=== PATIENT | male | born 1990 | race Caucasian/White ===

== ENCOUNTER 2024-07-15 15:13 | Outpatient (CLI) | payer BC, SELFPAY ==
[2024-07-15 14:39] LABS: Basophils # 0.1 K/mm3 (0-0.2); Basophils % 1.3 % (0.1-2.0); Eosinophils # 0.2 K/mm3 (0.0-0.4); Eosinophils % 3.1 % (0.1-12.0); Hematocrit 47.7 % (42.0-52.0); Hemoglobin 15.1 g/dL (14.1-18.0); Lymphocytes # 2.3 K/mm3 (0.7-4.5); Lymphocytes % 33.9 % (10-50); Mean Corpuscular HGB Conc 31.7 g/dL (31.8-35.4); Mean Corpuscular Hemoglobin 25.6 pg (27.0-31.2); Mean Corpuscular Volume 80.8 fl (80-94); Mean Platelet Volume 10.7 fl (7.4-10.4); Monocytes # 0.5 K/mm3 (0.1-1.0); Monocytes % 7.8 % (1.7-9.3); Neutrophils # 3.6 K/mm3 (1.8-7.8); Neutrophils % 53.6 % (37.0-80.0); Platelet Count 315 K/mm3 (142-424); Red Cell Distribution Width 15.7 % (11.5-17.5); White Blood Count 6.8 K/mm3 (4.8-10.8)
[2024-07-15 15:04] LABS: Chloride 103 mmol/L (98-107)
[2024-07-15 15:05] LABS: Sodium 141 mmol/L (136-145)
[2024-07-15 15:08] LABS: Alanine Aminotransferase 41 U/L (12-78); Alkaline Phosphatase 43 U/L (38-126); Aspartate Amino Transferase 33 U/L (17-59); Bilirubin,Total 0.7 mg/dl (0.2-1.3); Blood Urea Nitrogen 19 mg/dl (9-20); Calcium 9.4 mg/dl (8.4-10.2); Carbon Dioxide 26 mmol/L (22.0-30.0); Chol/HDL Ratio 7.4 (1-3.5); Cholesterol 250 mg/dl (140-200); Estimated Glomerular Filt Rate 85 ml/min (>60); GFR (African American) 103 ML/MIN (>60); Glucose 87 mg/dl (74-100); HDL Cholesterol 34 mg/dl (40-60); Total Protein,Serum 7.1 g/dl (6.3-8.2); Triglycerides 107 mg/dl (30-150); VLDL Cholesterol 21 mg/dL (0-40)
[2024-07-15 15:20] LABS: Direct LDL Cholesterol 188.86 mg/dL (100-129)
[2024-07-15 15:39] LABS: Thyroid Stimulating Hormone 1.45 uIU/mL (0.465-4.68)
[2024-07-15 16:23] LABS: Albumin Level 4.6 g/dl (3.5-5.0); Albumin/Globulin Ratio 1.8 (1.1-1.8); Globulin 2.5 g/dL (1.3-3.2)
[2024-07-16 03:55] LABS: Estradiol 31.6 pg/mL (7.6-42.6)
[2024-07-24 18:32] LABS: Testosterone, Total, LC/MS 407 ng/dL (.)
== END 2024-07-15 23:59 | disposition home or self-care (01) ==
LOC: LAB.DROPOF 15:13
PROVIDERS: PCP Internal Medicine; Visit Provider Internal Medicine
DX: E29.1 Testicular hypofunction (principal); Z13.220 Encounter for screening for lipoid disorders; Z79.890 Hormone replacement therapy; Z13.29 Encounter for screening for other suspected endocrine disorder
CPT/HCPCS: 80053; 80061; 82670; 84403; 84443; 85025

== ENCOUNTER 2025-04-09 10:47 | Outpatient (CLI) | payer BC, SELFPAY ==
--- NOTE | 2025-04-09 10:49 | XR_ITS ---
FINAL REPORT CLINICAL HISTORY: Fell off of ladder last Simon. Pain in low back and upper portion of pelvis. COMPARISON: None FINDINGS: SINGLE VIEW PELVIS: A single view of the pelvis was obtained. There is no acute fracture or dislocation. Vizualized joint spaces are normally aligned. Soft tissues are unremarkable. IMPRESSION: No acute bony abnormality. Reviewed, Interpreted and Dictated by Ranjan Stallings MD Transcribed by Molly Carolina Authenticated and [facility]
--- NOTE | 2025-04-09 10:49 | XR_ITS ---
FINAL REPORT CLINICAL HISTORY: Fell off of ladder last Sunday. Pain in low back and upper portion of pelvis. COMPARISON: None FINDINGS: 3 views of the lumbar spine were obtained. There is no evidence of fracture. There is no malalignment. The vertebrae are normal in height. There is moderate anterior osteophyte formation at T12-L1 and L1-2. No paraspinous soft tissue abnormalities identified. IMPRESSION: No acute bony abnormality. Reviewed, Interpreted and Dictated by Ranjan Stallings MD Transcribed by Molly Carolina Authenticated and . [facility]
--- OUTSIDE RECORDS SUMMARY | 2025-04-09 10:53 | XMS_ITS | Clinical Summary ---
Author Organization [facility] Address [address] [place] [address] Care Team Providers Care Agricultural Chemist Name Role Phone Jimbo Hirsch MD Primary Care Provider [phone] Allergies No known active allergies Medications NON FORMULARY / PATIENT SUPPLIED MEDICATION TST patient takes testosterone cypionate injectable twice a week 0.35 mL of 200mg/mL Active NON FORMULARY / PATIENT SUPPLIED MEDICATION Estrogen dinh only taken on this is a pill Active lisinopril (PRINIVIL,ZESTRI L) 20 MG tabletIndication s:Primary hypertension Take 1 tablet by mouth Daily. 90 tablet 3 4 Active omeprazole (priLOSEC) 40 MG capsuleIndicatio ns:Gastroesophag eal reflux disease without esophagitis Take 1 capsule by mouth Daily. 90 capsule 3 4 Active Active Problems Problem Noted Date Diagnosed Date Impingement of right shoulder 06/19/2023 Assessment & Plan (06/19/2023 12:47 PM EST): Continue ibuprofen as needed Exercises given and he has background in personal training and decline formal PT. Refer to ortho to evaluate for subacromial injection may help. Plantar fasciitis, right 06/19/2023 Assessment & Plan (06/19/2023 12:49 PM EST): Recommend insoles such as powerstep Stretches Night brace Primary hypertension 09/05/2022 Assessment & Plan (06/19/2023 12:48 PM EST): A little above goal. But didn't take lisinopril this am. Monitor at home f/u in 3 months call sooner if not at goal. Cont lisinopril 20 mg Assessment & Plan (09/05/2022 8:36 AM EST): - Prescribed lisinopril he has been noncompliant so will not increase today we will follow-up in 3 months Gastroesophageal reflux disease without esophagi tis 09/05/2022 Assessment & Plan (06/19/2023 9:05 AM EST): Cont omeprazole. Assessment & Plan (09/05/2022 8:36 AM EST): Risk and benefits of omeprazole discussed and will refill Low testosterone in male 09/05/2022 Assessment & Plan (09/05/2022 8:34 AM EST): Patient takes testosterone injection and likely selective estrogen receptor modulator per outside physician Family History Medical History Relation Name Comments Asthma Father Bill Diabetes Father Bill Hyperlipidemia Father Bill Alcohol abuse Mother Valery Depression Mother Valery Relation Name Status Comments Father Bill Mother Valery Social History Tobacco Use Types Packs/Day Years Used Date Smoking Tobacco: Never Smokeless Tobacco: Current Snuff Tobacco Cessation:Ready to Q uit: Not Asked; Counseling Given: Not Answered Alcohol Use Standard Drinks/Week Comments Yes 2 (1 standard drink = 0.6 oz pur e alcohol) occasional- 1 shot weekly PHQ-2 Answer Date Recorded Retired PHQ-9: Brief Depression Severity Measure Score 0 09/05/2022 Abuse Screen Answer Date Recorded Unsafe at Home or Work/School Not on file Feels Threatened by Someone? Not on file 03/2023 Does Anyone Keep You from Co ntacting Others or Doint Things Outside the Home? Not on file 04/16/2023 Physical Sign of Abuse Present Not on file 1 Housing Stability Answer Date Recorded Current Living Arrangements Not on file 03/2023 Potentially Unsafe Housing Conditions Not on mimi e 04/16/2023 Family and Community Support Answer Pete e Recorded Help with Day-to-Day Activities Not on file 04/16/2023 Lonely or Isolated Not on file 04/16/2023 Employment Answer Date Recorded Do you want help finding or keeping work or a randall b? Not on file 04/16/2023 Disabilities Answer Date Recorded Concentrating, Remembering, or Making Decisions Difficulty Not on file 04/16/2023 Doing Errands Independently Difficulty Not on fi le 04/16/2023 Education Answer Date Recorded Help with school or training? Not on file Preferred Language Not on file 04/16/2023 PHQ-2 Answer Date Recorded Retired PHQ-9: Brief Depression Severity Measure Score 0 09/05/2022 Sex and Gender Information Value Date Recorded Sex Assigned at Not on file Legal Sex Male 12:39 PM EDT Gender Identity Not on file Sexual Orientation Not on file Last Filed Vital Signs Vital Sign Reading Time Taken Comments Blood Pressure 170/110 07/12/2023 9:26 AM EST Pulse 71 06/19/2023 8:54 AM EST Temperature 36.7 C (98 F) 06/19/2023 8:54 AM EST Respiratory Rate 21 06/19/2023 8:54 AM EST Oxygen Saturation 98% 06/19/2023 8:54 AM EST Inhaled Oxygen Concentration - - Weight 135 kg (297 lb 9.9 oz) 07/12/2023 9:26 AM EST Height 188 cm (6' 2.02 ) 07/12/2023 9:26 AM EST Body Mass Index 38.2 07/12/2023 9:26 AM EST Plan of Treatment Health Maintenance Due Date Last Done Comments TDAP/TD VACCINES (1 - Tdap) 2008 ANNUAL PHYSICAL 09/05/2022 HEPATITIS C SCREENING 09/05/2022 INFLUENZA VACCINE Discontinued 05/09/2017, 05/10/2016 Pneumococcal Vaccine 0-49 Aged Out No longer eligible based on patient's age to complete this topic Insurance [employer] Care Teams Agricultural Chemist Relationship Specialty Start Date End Date Jimbo Hirsch MD [address] [place] [address] PCP - General Family Medicine 09/05/22
== END 2025-04-09 23:59 | disposition home or self-care (01) ==
LOC: RAD 10:47
PROVIDERS: PCP Internal Medicine; Visit Provider Internal Medicine
DX: M54.50 Low back pain, unspecified (principal); W11.XXXA Fall on and from ladder, initial encounter
CPT/HCPCS: 72100; 72170

== ENCOUNTER 2025-07-05 10:44 | Emergency (ER) | payer BC, SELFPAY ==
[2025-07-05] VITALS (8 sets, daily range): BP systolic 111–133; BP diastolic 53–80; PULSE 75–86; RESP 18; TEMP 37.3; O2SAT 94–98; BMI 39.1
--- OUTSIDE RECORDS SUMMARY | 2025-07-05 10:54 | XMS_ITS | Clinical Summary ---
Author Organization [facility] Address [address] [place] [address] Care Team Providers Care Parking Meter Mechanic Name Role Phone Jimbo Hirsch MD Primary Care Provider [phone] Allergies No known active allergies Medications NON [...] patient's age to complete this topic Insurance [employer] EM[employer] Care Teams Parking Meter Mechanic Relationship Specialty Start Date End Date Jimbo Hirsch MD [address] [place] [address] PCP - General Family Medicine 09/05/22
--- OUTSIDE RECORDS SUMMARY | 2025-07-05 10:54 | XMS_ITS ---
Author Organization Unknown ENCOUNTERS Encounter Performer Location Date Diagnosis Diagnosis Status Emergency [facility] [address] [place] [address] [id number] Pre Admit [facility] [address] [place] [address] [id number] *Note: Encounters from your own facility or health system may be excluded. Allergies, Adverse Reactions, Alerts Allergen Type Severity Identification Date Medications Name Date Quantity Days Supplied GPI Number
--- NOTE | 2025-07-05 11:11 | CT_ITS ---
PROCEDURE INFORMATION: Exam: CT Thoracic Spine Without Contrast Exam date and time: 07/05/2025 11:46 AM Age: 35 years old Clinical indication: Injury or trauma; Fall; Other: Pain TECHNIQUE: Imaging protocol: Computed tomography of the thoracic spine without contrast. Radiation optimization: All CT scans at this facility use at least one of these dose optimization techniques: automated exposure control; mA and/or kV adjustment per patient size (includes targeted exams where dose is matched to clinical indication); or iterative reconstruction. COMPARISON: CT THORACIC SPINE WO CON 07/05/2025 11:46 AM FINDINGS: Bones/joints: There is a prominent kyphosis of the thoracolumbar junction with relative straightening of the thoracic spine.There is no evidence of an acute fracture. Soft tissues: The included paraspinal soft tissues appear normal. Lungs: The included lungs appear normal. Pleural spaces: There are no pleural effusions present. Other findings: A moderate hiatal hernia is present. IMPRESSION: 1. There is a prominent kyphosis of the thoracolumbar junction with relative straightening of the thoracic spine.There is no evidence of an acute fracture. 2. The included lungs appear normal. 3. There are no pleural effusions present.
--- NOTE | 2025-07-05 11:11 | CT_ITS ---
PROCEDURE INFORMATION: Exam: CT Cervical Spine Without Contrast Exam date and time: 07/05/2025 11:44 AM Age: 35 years old Clinical indication: Injury or trauma; Fall; Other: Pain; Additional info: Pain fall TECHNIQUE: Imaging protocol: Computed tomography of the cervical spine without contrast. Radiation optimization: All CT scans at this facility use at least one of these dose optimization techniques: automated exposure control; mA and/or kV adjustment per patient size (includes targeted exams where dose is matched to clinical indication); or iterative reconstruction. COMPARISON: CT CERVICAL SPINE WO CON 07/05/2025 11:44 AM FINDINGS: Bones: There is a flattening of the normal lordosis, related to positioning or spasm. There is no evidence of an acute fracture. Lungs: The visualized portions of the lung apices are normal. Thyroid: A 1 cm hypodense lesion is noted in the central left thyroid lobe on axial image 92. No follow up is recommended for this size lesion. Lymph nodes: There are numerous prominent but non-pathologic lymph nodes in the neck. There are no nodes of pathologic dimensions. Soft tissues: Unremarkable. IMPRESSION: 1. There is a flattening of the normal lordosis, related to positioning or spasm. 2. There is no evidence of an acute fracture. 3. A 1 cm hypodense lesion is noted in the central left thyroid lobe on axial image 92. No follow up is recommended for this size lesion. COMMENTS: Consistent with the [employer]'s Incidental Findings Committee white paper (J Am Freddy Radiol 2015): In patients aged 35 years and older with an incidental thyroid nodule equal to or greater than 1.[address], MRI or extrathyroidal US, further evaluation with dedicated thyroid US is recommended for patients with normal life expectancy and without comorbidities. For smaller nodules without suspicious features, no further evaluation or follow up is recommended.
--- NOTE | 2025-07-05 11:11 | CT_ITS ---
PROCEDURE INFORMATION: Exam: CT Lumbar Spine Without Contrast Exam date and time: 07/05/2025 11:49 AM Age: 35 years old Clinical indication: Injury or trauma; Fall; Other: Pain; Additional info: Back pain from fall TECHNIQUE: Imaging protocol: Computed tomography of the lumbar spine without contrast. Radiation optimization: All CT scans at this facility use at least one of these dose optimization techniques: automated exposure control; mA and/or kV adjustment per patient size (includes targeted exams where dose is matched to clinical indication); or iterative reconstruction. COMPARISON: CR XR LUMBAR SPINE 2-3V 04/09/2025 10:58 AM FINDINGS: Bones/joints: There is no evidence of an acute fracture. Soft tissues: The included paraspinal soft tissues appear normal. There is no nerve root compression. IMPRESSION: 1. There is no evidence of an acute fracture. 2. There is no nerve root compression.
--- NOTE | 2025-07-05 11:12 | XR_ITS ---
PROCEDURE INFORMATION: Exam: XR Chest Exam date and time: 07/05/2025 11:51 AM Age: 35 years old Clinical indication: Shortness of breath; Additional info: Short of breath TECHNIQUE: Imaging protocol: Radiologic exam of the chest. Views: 1 view. COMPARISON: CT THORACIC SPINE WO CON 07/05/2025 11:46 AM FINDINGS: Lungs: Unremarkable. No consolidation. Pleural spaces: Unremarkable. No pleural effusion. No pneumothorax. Heart/Mediastinum: Unremarkable. No cardiomegaly. Bones/joints: Unremarkable. IMPRESSION: No acute findings.
--- NOTE | 2025-07-05 11:14 | ED_ITS ---
Discharge Plan Disposition Patient Disposition: Home, Self-Care Condition: Good Prescriptions Prescriptions: New ondansetron HCl 4 mg tablet 4 mg PO DAILY PRN (Reason: nausea and vomiting) 5 Days Qty: 20 0RF No Action omeprazole 40 mg capsule,delayed release(DR/EC) See Rx Instructions .ROUTE .COMPLEX Qty: 90 3RF Dose Instruction: TAKE ONE CAPSULE BY MOUTH EVERY DAY Rx Instructions: TAKE ONE CAPSULE BY MOUTH EVERY DAY lisinopril 20 mg tablet 20 mg PO DAILY Qty: 90 3RF Referrals Follow up/Referrals: Javon Vidal DO [Primary Care Provider, Family Practice] - See instructions Activity Restrictions/Add. Instructions Additional Instructions/Restrictions: Please follow-up with Dr. Vidal for repeat of liver enzymes as they were elevated here in the ED. Drink lots of fluids and rest. If any other symptoms occur please return to the ED Clinical Impressions Clinical Impression: Dehydration Instructions Patient Instructions: Dehydration Print Language Print Language: Chinese Discharge ED Provider: Rosendo Shaw General Adult HPI <Ramila Arroyo (ED), STRATEGIC PLANNING CONSULTANT - Last Filed: 07/05/25 15:15> General Chief complaint: Nausea/Vomiting/Diarrhea Stated complaint: fever, muscles spams, skin sensitivity Time Seen by Provider: 07/05/25 10:59 History of Present Illness HPI narrative: 35-year-old male presents to the ED today after passing out on morning. He got sick on Sunday with flulike symptoms. He has been weak and unable to tolerate much fluid. He has tried to drink plenty of fluids but has been unable to. has been trying to encourage him to come to the ER for the past couple of days but he just did not want to. He has had a headache but is been taking ibuprofen and it has helped some. Related Data Previous Rx's ?Medication ?Instructions ?Recorded omeprazole 40 mg capsule,delayed See Rx Instructions . Route 02/18/25 release .COMPLEX #90 caps lisinopril 20 mg tablet 20 mg PO DAILY #90 tabs 05/09 03/02 ondansetron HCl 4 mg tablet 4 mg PO DAILY PRN nausea a nd 07/05/25 vomiting 5 days #20 tabs Allergies Allergy/AdvReac Type Severity Reaction Status Date / Time No Known Allergies Allergy Verified 07/05/25 10:23 PFSH <Ramila Arroyo (ED), STRATEGIC PLANNING CONSULTANT - Last Filed: 07/05/25 15:15> [facility] Disclaimer: The information contained in this section may have been updated after the patient was seen, as this information can be updated by other users. Medical History Heartburn Acid reflux Hypertension Low testosterone Social History Smoking Status: Never smoker smoking status stop date: Nicotine patches alcohol intake: current alcohol intake frequency: a few times a week substance use type: denies use current occupational status: employed Travel in the last 8 weeks?: None Have you lived/traveled outside [place] in past 30 days?: No Contact w/someone who lives/traveled outside US past 30 days?: No Exposure to someone with infectious disease in past 14 days?: No Do you have a fever (greater than 100.4 F or 38 C)?: No Have you tested positive for COVID-19?: No Exposed to someone with COVID-19 in past 14 days?: No Do you have a sore throat?: No Do you have a cough?: No Do you have any weakness?: No Do you have any diarrhea?: No Are you experiencing any unusual bleeding?: No Do you have any muscle aches/pain?: No Do you have any abdominal pain?: No Are you experiencing loss of taste or smell?: No Other Medical History Have you received the Pneumonia Vaccine: No <Ramila Arroyo (ED), STRATEGIC PLANNING CONSULTANT - Last Filed: 07/05/25 15:15> ROS Obtained: Yes Systems reviewed as appropriate & no additional complaints except as documented Constitutional Constitutional: Reports as per HPI Physical Exam <Ramila Vysunny (ED), STRATEGIC PLANNING CONSULTANT - Last Filed: 07/05/25 15:15> General General appearance: alert Head Head exam: normocephalic Eye Eye exam: Present PERRL and EOMI ENT ENT exam: Present normal oropharynx and mucous membranes moist Neck Neck exam: Present full ROM and trachea midline Respiratory Respiratory exam: Present normal lung sounds bilaterally Cardiovascular Cardiovascular exam: Present regular rate, normal rhythm, normal heart sounds, +S1 and +S2 Abdominal Exam Abdominal exam: Present soft and normal bowel sounds Extremities Exam Extremities exam: Present full ROM and normal capillary refill Neurological Exam Neurological exam: Present alert and oriented X3 Skin Skin exam: Present warm and dry Medical Decision Making <Ramila Arroyo (ED), STRATEGIC PLANNING CONSULTANT - Last Filed: 07/05/25 15:15> Medical Records Screening: Per USPSTF and CDC recommendations, given the prevalence of disease in our region, it is our hospital?s policy to screen for HIV and viral Hepatitis for all patients aged 18 and over and those with ongoing risk factors. Quoc Inquiry Pt receiving controlled substance: No Quoc was queried for this patient: No Vital Signs: 07/05/25 11:11 07/05/25 11:13 07/05/25 12:00 Temperature 99.2 F Temperature Source Oral Pulse Rate 80 76 Pulse Rate [Radial] 86 Respiratory Rate 18 Blood Pressure 126/72 133/80 Blood Pressure [Right Arm] 126/72 Blood Pressure Mean [Right Arm] 90 Blood Pressure Source [Right Arm] Automatic Cuff Blood Pressure Position [Right Arm] Sitting 02 Sat by Pulse Oximetry 98 97 98 Oxygen Delivery Method Room Air Room Air Room Air 07/05/25 12:30 07/05/25 14:00 07/05/25 14:30 Temperature Temperature Source Pulse Rate 77 77 76 Pulse Rate [Radial] Respiratory Rate Blood Pressure 125/68 125/72 111/53 L Blood Pressure [Right Arm] Blood Pressure Mean [Right Arm] Blood Pressure Source [Right Arm] Blood Pressure Position [Right Arm] 02 Sat by Pulse Oximetry 96 96 94 L Oxygen Delivery Method Room Air 07/05/25 15:00 07/05/25 15:21 Temperature 99.2 F Temperature Source Pulse Rate 75 84 Pulse Rate [Radial] Respiratory Rate 18 Blood Pressure 124/68 124/68 Blood Pressure [Right Arm] Blood Pressure Mean [Right Arm] Blood Pressure Source [Right Arm] Blood Pressure Position [Right Arm] 02 Sat by Pulse Oximetry 95 Oxygen Delivery Method Room Air Lab Data Lab Results 07/05/25 11:11: SARS-CoV-2 (PCR) Not detected, Influenza A Untype (PCR) Not detected, Influenza Type B (PCR) Not detected 07/05/25 11:38: WBC 3.4 L, RBC 5.05, Hgb 14.0 L, Hct 41.9 L, MCV 83.0, MCH 27.7, MCHC 33.4, RDW 13.9, Plt Count 122 L, MPV 10.1, Neut % (Auto) 71.9, Lymph % (Auto) 19.2, [place] % (Auto) 7.7, Eos % (Auto) 0.0 L, Baso % (Auto) 0.6, Neut # (Auto) 2.4, Lymph # (Auto) 0.7, [place] # (Auto) 0.3, Eos # (Auto) 0.0, Baso # (Auto) 0.0, Sodium 138, Potassium 3.6, Chloride 104, Carbon Dioxide 28, Anion Gap 9.6, BUN 16, Creatinine 1.10, Estimated Creat Clear 182, Estimated GFR 76, Est GFR ( Amer) 92, Glucose 116 H, Calcium 9.0, Magnesium 2.2, Total Bilirubin 0.5, AST 105 H, ALT 159 H, Alkaline Phosphatase 85, Troponin I < 0.01, Total Protein 6.4, Albumin 3.8, Globulin 2.6, Albumin/Globulin Ratio 1.5, Lipase 125, HCV Ab KERI w/Rflx PCR Qn Negative, HIV Ag/Ab Combo Qual Negative 07/05/25 12:58: Urine Color Yellow, Urine Appearance Clear, Urine pH 6.0, Ur Specific [place] 1.025, Urine Protein Negative, Urine Glucose (UA) Negative, Urine Ketones Negative, Urine Blood Negative, Urine Nitrate Negative, Urine Bilirubin Negative, Urine Urobilinogen 0.2, Ur Leukocyte Esterase Negative, Urine RBC None, Urine WBC Occasional, Ur Squamous Epith Cells Occasional, Urine Bacteria None, Urine Sperm Occ 07/05/25 11:38 07/05/25 11:38 Orders (Tests/Meds): ED MEDICATIONS Generic Name Dose Route Start Last Admin Trade Name Freq PRN Reason Stop Dose Admin Bacitracin 1 gm 07/05/25 21:00 Bacitracin Zinc Oint 30gm Tube TP 08/04/25 20:59 TID [place] Sodium Chloride 8 ml 07/05/25 11:12 07/05/25 11:33 Sodium Chloride 0.9% 10ml Vial IV 08/04/25 11:11 8 ml NEEDED PRN Administration dilute pepcid Discontinued Medications Generic Name Dose Route Start Last Admin Trade Name Freq PRN Reason Stop Dose Admin Acetaminophen 1,000 mg 07/05/25 13:17 07/05/25 13:39 Acetaminophen 1,000mg/100ml Vial IV 07/05/25 13:18 1,000 mg ONCE ONE Administration Famotidine 20 mg 07/05/25 11:12 07/05/25 11:33 Famotidine 20mg/2ml Vial IV 07/05/25 11:13 20 mg ONCE ONE Administration Sodium Chloride 1,000 mls @ 999 mls/hr 07/05/25 11:12 07/05/25 13:17 Sod Chlor 0.9% 1000ml Bag IV 07/05/25 12:12 Infused .Q1H1M ONE Infusion Sodium Chloride 1,000 mls @ 999 mls/hr 07/05/25 13:17 07/05/25 15:08 Sod Chlor 0.9% 1000ml Bag IV 07/05/25 14:17 Infused .Q1H1M ONE Infusion Ketorolac Tromethamine 30 mg 07/05/25 13:17 07/05/25 13:39 Ketorolac 30mg/Ml Vial IV 07/05/25 13:18 30 mg ONCE ONE Administration Ondansetron HCl 4 mg 07/05/25 11:12 07/05/25 11:33 Ondansetron 4mg/2ml Vial IV 07/05/25 11:13 4 mg ONCE ONE Administration ORDERS Category Date Time Status CT cervical spine wo con Stat Cat Scan 07/05/25 11:[address] lumbar spine wo con Stat Cat Scan 07/05/25 11:[address] thoracic spine wo con Stat Cat Scan 07/05/25 11:11 Completed Chest XR -- portable [XR chest portable] Stat Exams 07/05/25 11:12 Completed CBC [Complete Blood Count Auto Diff] Stat Lab 07/05/25 11:38 Completed Comprehensive Metabolic Panel Stat Lab 07/05/25 11:38 Completed HIV Combo Stat Lab 07/05/25 11:38 Completed Hepatitis C Ab Qual. W/ RFX Stat Lab 07/05/25 11:38 Completed Hepatitis Panel Stat Lab 07/05/25 12:28 Received Lipase Stat Lab 07/05/25 11:38 Completed Magnesium Stat Lab 07/05/25 11:38 Completed Rapid PCR Covid and Flu A/B Stat Lab 07/05/25 11:11 Completed Trop I [Troponin I] Stat Lab 07/05/25 11:38 Completed Troponin I Q3H Lab 07/05/25 14:15 Ordered Troponin I Q3H Lab 07/05/25 17:15 Ordered Urinalysis and Microscopic Stat Lab 07/05/25 12:58 Completed Medical Decision Narrative: patient is a 35-year-old male presenting to the emergency department for evaluation of nausea, vomiting, headache, back pain, his syncopal episode. Patient did not hit his head he fell back against something in the bathroom so did not hit his head. Patient is hemodynamically stable and nontoxic-appearing upon arrival, afebrile. Differential diagnosis includes flu, viral illnesses, syncope, back sprain or strain. Workup will be conducted with hematologic labs, specific imaging. Initial inventions include crystalloid bolus, analgesics. Initial workup reviewed by me hematologic labs are remarkable for . White blood cell count of 3.4, H&H was 14 and 41, sodium was 138 potassium 3.6 chloride 104 BUN and creatinine were 16 and 1.1, AST was [address] Shaw and I discussed this and we believe this is just because of his vomiting. We will have patient follow-up outpatient for repeat. troponin was less than 0.01. Urine was negative. Imaging today included CT of cervical lumbar and thoracic which were all negative as well as a chest x-ray which was negative. 1514 patient feels much better after the second liter of fluids. He and I discussed the elevated liver enzymes. He will make an appointment with Dr. Vidal to repeat these. Patient is safe for discharge home. <Rosendo Shaw MD - Last Filed: 07/05/25 15:26> Vital Signs: 07/05/25 11:11 07/05/25 11:13 07/05/25 12:00 Temperature 99.2 F Temperature Source Oral Pulse Rate 80 76 Pulse Rate [Radial] 86 Respiratory Rate 18 Blood Pressure 126/72 133/80 Blood Pressure [Right Arm] 126/72 Blood Pressure Mean [Right Arm] 90 Blood Pressure Source [Right Arm] Automatic Cuff Blood Pressure Position [Right Arm] Sitting 02 Sat by Pulse Oximetry 98 97 98 Oxygen Delivery Method Room Air Room Air Room Air 07/05/25 12:30 07/05/25 14:00 07/05/25 14:30 Temperature Temperature Source Pulse Rate 77 77 76 Pulse Rate [Radial] Respiratory Rate Blood Pressure 125/68 125/72 111/53 L Blood Pressure [Right Arm] Blood Pressure Mean [Right Arm] Blood Pressure Source [Right Arm] Blood Pressure Position [Right Arm] 02 Sat by Pulse Oximetry 96 96 94 L Oxygen Delivery Method Room Air 07/05/25 15:00 07/05/25 15:21 Temperature 99.2 F Temperature Source Pulse Rate 75 84 Pulse Rate [Radial] Respiratory Rate 18 Blood Pressure 124/68 124/68 Blood Pressure [Right Arm] Blood Pressure Mean [Right Arm] Blood Pressure Source [Right Arm] Blood Pressure Position [Right Arm] 02 Sat by Pulse Oximetry 95 Oxygen Delivery Method Room Air Lab Data Lab Results 07/05/25 11:11: SARS-CoV-2 (PCR) Not detected, Influenza A Untype (PCR) Not detected, Influenza Type B (PCR) Not detected 07/05/25 11:38: WBC 3.4 L, RBC 5.05, Hgb 14.0 L, Hct 41.9 L, MCV 83.0, MCH 27.7, MCHC 33.4, RDW 13.9, Plt Count 122 L, MPV 10.1, Neut % (Auto) 71.9, Lymph % (Auto) 19.2, [place] % (Auto) 7.7, Eos % (Auto) 0.0 L, Baso % (Auto) 0.6, Neut # (Auto) 2.4, Lymph # (Auto) 0.7, [place] # (Auto) 0.3, Eos # (Auto) 0.0, Baso # (Auto) 0.0, Sodium 138, Potassium 3.6, Chloride 104, Carbon Dioxide 28, Anion Gap 9.6, BUN 16, Creatinine 1.10, Estimated Creat Clear 182, Estimated GFR 76, Est GFR ( Amer) 92, Glucose 116 H, Calcium 9.0, Magnesium 2.2, Total Bilirubin 0.5, AST 105 H, ALT 159 H, Alkaline Phosphatase 85, Troponin I < 0.01, Total Protein 6.4, Albumin 3.8, Globulin 2.6, Albumin/Globulin Ratio 1.5, Lipase 125, HCV Ab KERI w/Rflx PCR Qn Negative, HIV Ag/Ab Combo Qual Negative 07/05/25 12:58: Urine Color Yellow, Urine Appearance Clear, Urine pH 6.0, Ur Specific [place] 1.025, Urine Protein Negative, Urine Glucose (UA) Negative, Urine Ketones Negative, Urine Blood Negative, Urine Nitrate Negative, Urine Bilirubin Negative, Urine Urobilinogen 0.2, Ur Leukocyte Esterase Negative, Urine RBC None, Urine WBC Occasional, Ur Squamous Epith Cells Occasional, Urine Bacteria None, Urine Sperm Occ Orders (Tests/Meds): ED MEDICATIONS Generic Name Dose Route Start Last Admin Trade Name Shivam PRN Reason Stop Dose Admin Bacitracin 1 gm 07/05/25 21:00 Bacitracin Zinc Oint 30gm Tube TP 08/04/25 20:59 TID [place] Sodium Chloride 8 ml 07/05/25 11:12 07/05/25 11:33 Sodium Chloride 0.9% 10ml Vial IV 08/04/25 11:11 8 ml NEEDED PRN Administration dilute pepcid Discontinued Medications Generic Name Dose Route Start Last Admin Trade Name Shivam PRN Reason Stop Dose Admin Acetaminophen 1,000 mg 07/05/25 13:17 07/05/25 13:39 Acetaminophen 1,000mg/100ml Vial IV 07/05/25 13:18 1,000 mg ONCE ONE Administration Famotidine 20 mg 07/05/25 11:12 07/05/25 11:33 Famotidine 20mg/2ml Vial IV 07/05/25 11:13 20 mg ONCE ONE Administration Sodium Chloride 1,000 mls @ 999 mls/hr 07/05/25 11:12 07/05/25 13:17 Sod Chlor 0.9% 1000ml Bag IV 07/05/25 12:12 Infused .Q1H1M ONE Infusion Sodium Chloride 1,000 mls @ 999 mls/hr 07/05/25 13:17 07/05/25 15:08 Sod Chlor 0.9% 1000ml Bag IV 07/05/25 14:17 Infused .Q1H1M ONE Infusion Ketorolac Tromethamine 30 mg 07/05/25 13:17 07/05/25 13:39 Ketorolac 30mg/Ml Vial IV 07/05/25 13:18 30 mg ONCE ONE Administration Ondansetron HCl 4 mg 07/05/25 11:12 07/05/25 11:33 Ondansetron 4mg/2ml Vial IV 07/05/25 11:13 4 mg ONCE ONE Administration ORDERS Category Date Time Status CT cervical spine wo con Stat Cat Scan 07/05/25 11:[address] lumbar spine wo con Stat Cat Scan 07/05/25 11:[address] thoracic spine wo con Stat Cat Scan 07/05/25 11:11 Completed Chest XR -- portable [XR chest portable] Stat Exams 07/05/25 11:12 Completed CBC [Complete Blood Count Auto Diff] Stat Lab 07/05/25 11:38 Completed Comprehensive Metabolic Panel Stat Lab 07/05/25 11:38 Completed HIV Combo Stat Lab 07/05/25 11:38 Completed Hepatitis C Ab Qual. W/ RFX Stat Lab 07/05/25 11:38 Completed Hepatitis Panel Stat Lab 07/05/25 12:28 Received Lipase Stat Lab 07/05/25 11:38 Completed Magnesium Stat Lab 07/05/25 11:38 Completed Rapid PCR Covid and Flu A/B Stat Lab 07/05/25 11:11 Completed Trop I [Troponin I] Stat Lab 07/05/25 11:38 Completed Troponin I Q3H Lab 07/05/25 14:15 Ordered Troponin I Q3H Lab 07/05/25 17:15 Ordered Urinalysis and Microscopic Stat Lab 07/05/25 12:58 Completed ECG Data Tracing #1: Independently interpreted by me rate is 83, rhythm is regular, axis is normal, no ST elevation in anatomical contiguous leads, QTc 370. No dagger Q waves in the lateral leads no high degree AV block. Medical Decision Narrative: patient is a 35-year-old male presenting to the emergency department for evaluation of nausea, vomiting, headache, back pain, his syncopal episode. Patient did not hit his head he fell back against something in the bathroom so did not hit his head. Patient is hemodynamically stable and nontoxic-appearing upon arrival, afebrile. Differential diagnosis includes flu, viral illnesses, syncope, back sprain or strain. Workup will be conducted with hematologic labs, specific imaging. Initial inventions include crystalloid bolus, analgesics. Initial workup reviewed by me hematologic labs are remarkable for . White blood cell count of 3.4, H&H was 14 and 41, sodium was 138 potassium 3.6 chloride 104 BUN and creatinine were 16 and 1.1, AST was [address] Shaw and I discussed this and we believe this is just because of his vomiting. We will have patient follow-up outpatient for repeat. troponin was less than 0.01. Urine was negative. Imaging today included CT of cervical lumbar and thoracic which were all negative as well as a chest x-ray which was negative. 1514 patient feels much better after the second liter of fluids. He and I discussed the elevated liver enzymes. He will make an appointment with Dr. Vidal to repeat these. Patient is safe for discharge home. Rosendo Shaw MD: I was consulted by the CARLOS, and we discussed the complexity of the problems being addressed. I approved the treatment and management plan for this patient's care in the emergency department, thus performing a substantive portion of the medical decision making. Critical Care <Ramila Arroyo (ED), STRATEGIC PLANNING CONSULTANT - Last Filed: 07/05/25 15:15> Critical Care Time Critical Care Time: No
--- NOTE | 2025-07-05 11:19 | ECG_ITS ---
APPROVED REPORT Exam: Resting ECG HR:83 bpm ECG Measurements Heart Rate 83 AXES MN 175 P 48 QRSd 97 QRS 32 QT 331 T 31 QTc 370 Conclusion SINUS RHYTHM NORMAL ECG Electronically signed by : ALMA LYNN, 07/07/2025 08:47:37
[2025-07-05 11:20] LABS: Coronavirus 19, PCR Not Detected (NotDetected); Influenza A, PCR Not Detected (NotDetected); Influenza B, PCR Not Detected (NotDetected)
[2025-07-05] MEDS: 0.9 % SODIUM CHLORIDE 1000ML 1,000 ML 999 ML IV ×2 (11:32→13:39)
[2025-07-05] MEDS: SODIUM CHLORIDE 0.9% 10ML VIAL 8 ML IV (11:33)
[2025-07-05] MEDS: ONDANSETRON 4MG/2ML VIAL 4 MG IV (11:33)
[2025-07-05] MEDS: FAMOTIDINE 20MG/2ML VIAL 20 MG IV (11:33)
[2025-07-05 11:42] LABS: Hematocrit 41.9 % (42.0-52.0); Hemoglobin 14.0 g/dL (14.1-18.0); Immature Granulocytes % 0.6 %; Mean Corpuscular HGB Conc 33.4 g/dL (31.8-35.4); Mean Corpuscular Hemoglobin 27.7 pg (27.0-31.2); Mean Corpuscular Volume 83.0 fl (80-94); Nucleated Red Blood Cells % 0 %; Platelet Count 122 K/mm3 (142-424); Red Blood Count 5.05 M/mm3 (4.60-6.20); Red Cell Distribution Width-SD 42.2 fL; White Blood Count 3.4 K/mm3 (4.8-10.8)
[2025-07-05 12:09] LABS: Albumin Level 3.8 g/dl (3.5-5.0); Chloride 104 mmol/L (98-107)
[2025-07-05 12:10] LABS: Potassium 3.6 mmoL/L (3.5-5.1); Sodium 138 mmol/L (136-145)
[2025-07-05 12:12] LABS: Alanine Aminotransferase 159 U/L (12-78); Anion Gap 9.6 mEq/L (5-15); Aspartate Amino Transferase 105 U/L (17-59); Blood Urea Nitrogen 16 mg/dl (9-20); Carbon Dioxide 28 mmol/L (22.0-30.0); Creatinine Clearance Estimated 182 mL/min (50-200); Creatinine,Serum 1.10 mg/dl (0.66-1.25); Estimated Glomerular Filt Rate 76 ml/min (>60); GFR (African American) 92 ML/MIN (>60)
[2025-07-05 12:13] LABS: Albumin/Globulin Ratio 1.5 (1.1-1.8); Alkaline Phosphatase 85 U/L (38-126); Bilirubin,Total 0.5 mg/dl (0.2-1.3); Calcium 9.0 mg/dl (8.4-10.2); Globulin 2.6 g/dL (1.3-3.2); Glucose 116 mg/dl (74-100); Lipase 125 U/L (23-300); Magnesium 2.2 mg/dl (1.6-2.3); Total Protein,Serum 6.4 g/dl (6.3-8.2)
[2025-07-05 12:33] LABS: Troponin I < 0.01 ng/ml (0.00-0.034)
[2025-07-05 13:09] LABS: Microscopic, Urine URINE MICROSCOPIC (MICROSCOPIC)
[2025-07-05 13:15] LABS: Bilirubin,Urine Negative (Negative); Color,Urine YELLOW (Yellow); Glucose,Urine (UA) Negative (Negative); Ketones,Urine Negative (Negative); Leukocyte Esterase,Urine Negative (Negative); PH,Urine 6.0 (5.0-8.5); Protein,Urine Negative (Negative); Specific Gravity, Urine 1.025 (1.005-1.030); Urobilinogen,Urine 0.2 EU/dl (0.2)
[2025-07-05 13:18] LABS: Hepatitis C Ab Qual. W/ RFX NEGATIVE (Negative)
[2025-07-05] MEDS: KETOROLAC 30MG/ML VIAL 30 MG IV (13:39)
[2025-07-05] MEDS: ACETAMINOPHEN 1,000MG/100ML VIAL 1000 MG IV (13:39)
[2025-07-05 13:45] LABS: Sperm,Urine OCC /lpf; Squamous Epithelial Cell,Urine Occasional #/hpf (0-5); WBC,Urine Occasional #/hpf (0-3)
== END 2025-07-05 15:27 | disposition home or self-care (01) ==
PROVIDERS: Nurse Practitioner; Emergency Provider Emergency Medicine; PCP Internal Medicine
DX: E86.0 Dehydration (principal); R11.2 Nausea with vomiting, unspecified; M54.9 Dorsalgia, unspecified; R74.8 Abnormal levels of other serum enzymes
CPT/HCPCS: 71045; 72125; 72128; 72131; 80053; 80074; 81001; 83690; 83735; 84484; 85025; 86803; 87389; 87636; 93005; 96361; 96374; 96375; 99285; J0131; J1308; J1885; J2405; J7030